=== PATIENT | female | born 1935 | race African-American/Black ===

== ENCOUNTER → 2019-11-15 | Day surgery (SDC) | payer MEDICAID ==
--- NOTE | 2019-11-12 11:00 | Opthalmology H&P ---
Ophthalmology H&P H&P Chief Complaint: decreased vision in left eye HPI Vision Affects Ability to: read, focus/use eyes together, manage personal affairs Past Ocular History: glaucoma HPI Narrative Blurry vision Exam Visual Acuity: OD 20/50 OS 20/60 Tension: OD 11 OS 14 Eye Exam: normal OU: external exam, palpebral fissure-width, marginal reflex distance, levator function, corneas, anterior chambers; findings: lens - Cortical Cataracts OU, fundus exam - Glaucoma Assessment/Plan Treatment Plan: cataract extraction w/ lens implant Goals of Treatment: improvement of vision, enhance quality of life Attestation Attestation The risks and benefits of the surgery as well as alternative procedures were explained to the patient in detail. Jesús Ramires MD Nov 12, 2019 11:00
--- NOTE | 2019-11-12 11:05 | Pre-Procedure Note/Attestation ---
Pre-Procedure Note/Attestation Complete Prior to Procedure Planned Procedure: left Procedure Narrative: Cataract extraction with IOL implant left eye Indications for Procedure Pre-Operative Diagnosis: Cortical cataract left eye Attestation I attest that I discussed the nature of the procedure; its benefits; risks and complications; and alternatives (and the risks and benefits of such alternatives ), prior to the procedure, with the patient (or the patient's legal national account representative). I attest that, if there was a reasonable possibility of needing a blood transfusion, the patient (or the patient's legal national account representative) was given the [facility] standardized written summary, pursuant to the Lloyd [place]ed[place] Blood Safety Act ([place] Health and Safety Code # 1645, as amended). I attest that I re-evaluated the patient just prior to the surgery and that there has been no change in the patient's H&P, except as documented below: Jesús Ramires MD Nov 12, 2019 11:05
[~2019-11-15] VITALS: Ht 172.7 cm; Wt 79.4 kg
[2019-11-15] VITALS (8 sets, daily range): BP systolic 126–165; BP diastolic 58–87
[~2019-11-15] MED LIST: ACETAMINOPHEN500 M3 ORAL; AMLODIPINE BESY10 MG ORAL; ARIMIDEX1 MG ORAL; Akten 3.5% 1ml Btl LEFT EYE ONE; BSS 15ml BTL ONE; BSS 500ml btl ONE; CLONIDINE HCL0.1 MG PO; EPINEPHrine 1mg/1ml Amp ONE; HYDROCHLOROTHIA25 MG ORAL; LOSARTAN POTASS50 MG ORAL; LR 1000ml 1,000 ML IVLG SCH; LR 1000ml ONE; Maxitrol Opth Oint 3.5gm ONE; NS Irrig 1000ml ONE; Pilocarpine 1% Opth 15ml Soln ONE; Povidone-Iodine 5% opth solution ONE; Proparacaine 0.5% Opth Soln 15ml LEFT EYE ONE; Sodium Hyaluronate 10 mg/ml 0.85ml ONE; Sterile Water Irrig 1000ml IRRIG ONE; Tetracaine 0.5% Opth 4ml Soln LEFT EYE ONE; fentaNYL 100 mcg/2 mL IV ONE; fentaNYL 100 mcg/2 mL IV PRN; prednisoLONE acetate 1% Opth Susp 1ml ONE
[2019-11-15] MEDS: Tropicamide 1% Opth 15ml Soln LEFT EYE SCH ×3 (07:22→07:44)
[2019-11-15] MEDS: Diclofenac Sod 0.1% Op Soln LEFT EYE SCH ×3 (07:22→07:45)
[2019-11-15] MEDS: Cyclopentolate 1% Opth Sol 2ml LEFT EYE SCH ×3 (07:22→07:44)
[2019-11-15] MEDS: Phenylephrine 10% Opth Soln 5ml LEFT EYE SCH ×3 (07:22→07:44)
[2019-11-15] MEDS: Tobramycin Op Soln 0.3% 5ml LEFT EYE SCH ×3 (07:22→07:45)
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
--- NOTE | 2019-11-15 09:43 | Immediate Post-Op Evaluation ---
Immediate Post-Op Evalulation Immediate Post-Op Evalulation Procedure: L eye cataract extraction with IOL Date of Evaluation: Nov 15, 2019 Time of Evaluation: 09:41 IV Fluids: 300 Blood Products: none Estimated Blood Loss: none Urinary Output: none Blood Pressure Systolic: 158 Blood Pressure Diastolic: 76 Pulse Rate: 64 Respiratory Rate: 20 O2 Sat by Pulse Oximetry: 99 Temperature (Fahrenheit): 98.6 Pain Score (1-10): 1 Nausea: No Vomiting: No Complications none Patient Status: awake, patent, none Hydration Status: adequate Mickey Ross MD Nov 15, 2019 09:43
--- NOTE | 2019-11-15 10:17 | 48 Hour Post Anesthesia Eval ---
Post Anesthesia Evaluation Procedure: L eye cataract extraction with IOL Date of Evaluation: Nov 15, 2019 Time of Evaluation: 10:16 Blood Pressure Systolic: 162 0: 58 Pulse Rate: 74 Respiratory Rate: 18 Temperature (Fahrenheit): 97.8 O2 Sat by Pulse Oximetry: 99 Airway: patent Nausea: No Vomiting: No Pain Intensity: 1 Hydration Status: adequate Cardiopulmonary Status: stable Mental Status/LOC: patient returned to baseline Follow-up Care/Observations: n/a Post-Anesthesia Complications: none Follow-up care needed: ready to discharge Mickey Ross MD Nov 15, 2019 10:17
--- NOTE | 2019-11-15 16:43 | Brief Operative Note ---
Immediate Post Operative Note Operative Note Chief Complaint: Blurry vision Pre-op Diagnosis: Cortical cataract left eye Procedure: Cataract extraction with IOL implant left eye Post-op Diagnosis: Pseudo OS Findings: consistent w/pre-op dx studies Surgeon: Jesús Ramires MD Anesthesiologist: Mickey Ross MD Anesthesia: MAC Specimen: none Complications: none Condition: stable Fluids: LR Drains: none Implant(s) used?: Yes - IOL-OS Jesús Ramires MD Nov 15, 2019 16:43
--- NOTE | 2019-11-15 16:44 | Operative Note - PDOC ---
Operative Note Operative Note Date of Operation/Procedure: Nov 15, 2019 Chief Complaint: Blurry vision Pre-op Diagnosis: Cortical cataract left eye Procedure: Cataract extraction with IOL implant left eye Post-op Diagnosis: Pseudo OS Operative Findings: consistent w/pre-op dx studies Surgeon: Jesús Ramires MD Anesthesiologist: Mickey Ross MD Anesthesia: MAC Specimen: none Complications: none Condition: stable Fluids: LR Drains: none Implant(s) used?: Yes - IOL-OS Indications for Procedure Cortical cataract left eye Description of Procedure This patient has been complaining visually significant cataract in the left eye with the best corrected visual acuity of 20/60 under moderate glare conditions worse. The patient complains of difficulties with glare in performing activities of daily living and wants to manage personal affairs with comfort and accuracy and see well enough to move with safety at home and outdoors. The risks, benefits and alternatives of the procedure were discussed with the patient in the office prior to scheduling surgery. All questions from the patient were answered after the surgical procedure was explained in detail. The risks of the procedure as explained to the patient include, but are not limited to, pain, infection, bleeding, loss of vision, retinal detachment, need for further surgery, loss of lens nucleus, double vision, etc. Alternative procedures were discussed which include, to do nothing or seek a second opinion. Informed consent for this procedure was obtained from the patient. The patient was referred to a primary care physician for a cardiopulmonary clearance prior to surgery, after proper evaluation was done patient was properly scheduled for outpatient surgery. The patient was brought to the operating room where the anesthesiologist established I.V. lines and cardiac monitoring leads. Mild intravenous sedation was administered. The patient was then prepared with a 5% solution of povidone -iodine to the conjunctival fornix and lashes, and a 5% solution of povidone- iodine to the lids and periorbital skin. The patient was then draped in the usual sterile fashion. A lid speculum was then placed in the operative eye. A keratome blade was then used to create a biplanar incision into the anterior chamber. Viscoelastics was then instilled into the anterior chamber. A capsulorrhexis was then fashioned with an utrata forceps. BSS and a cannula were then used to hydrodissect and hydro delineate the lens. Paracentesis incision was made at 3 o'clock with sharp blade. The phacoemulsification unit, after being properly adjusted and tested, was then used to emulsify the nucleus. Residual cortical material was aspirated with the irrigation and aspiration unit. Healon was then instilled into the anterior chamber. The corneal wound was then enlarged to the size of the optic with the thuy keratome blade. The intraocular lens was then inspected for right power and size and thought to be satisfactory. Then the lens was gently placed in the capsular bag. Positioning within the capsular bag was confirmed by direct visualization. Optic centration was accomplished with a Sinskey hook. Viscoelastics was removed from the anterior chamber using the irrigation and aspiration unit. The corneal wound was then tested for leaks and none were found. The lid speculum were then removed. Sponge and needle counts were correct. An eye patch and shield were placed over the operative eye. The patient was taken to the recovery room in stable condition. There were no complications. The patient tolerated the procedure well. The patient was then transferred to the ambulatory surgery unit in stable and satisfactory condition , was given detailed written instructions and asked to follow up in the office the next day. Jesús Ramires MD Nov 15, 2019 16:44
== END | disposition home or self-care (01) ==
LOC: SUR 06:02
DX: H25.012 Cortical age-related cataract, left eye (principal); H40.9 Unspecified glaucoma; I10 Essential (primary) hypertension; K21.9 Gastro-esophageal reflux disease without esophagitis; M19.90 Unspecified osteoarthritis, unspecified site
CPT/HCPCS: 66984; 94003; J0171; J1100; J2704; J3010; J3370; J7120; U0002; V2632; Z7512; 94150